=== PATIENT | female | born 1965 ===

== ENCOUNTER 2024-06-20 09:41 | Outpatient (REF) | payer BC, SELFPAY ==
--- OUTSIDE RECORDS SUMMARY | 2024-06-20 10:32 | XMS_ITS | Clinical Summary ---
[facility] Address [address] [place] [address] Care Team Providers Care Zinc Miner Name Role Phone Nelson Bah MD Primary Care Provider [phone] Allergies Active Allergy Reactions Criticality Noted Date Comments Amlodipine Swelling 01/01/2018 Bee Venom Protein (Honey Bee) Swelling High 11/01/2022 Lisinopril Swelling Medium 11/28/2017 Lip sweeling and dry cough Morphine Hives 05/19/2014 Sulfamethoxazole-Trimethopr im Hives 05/19/2014 Medications bisacodyL (DULCOLAX) 5 mg EC tablet Take 2 tablets by mouth right before your first dose of liquid prep. 4 Active polyethylene glycol (GoLYTELY) 236-22.74-6.74 -5.86 gram solution Take 240 mL by mouth once for 1 dose. May substitue for any PEG. Follow instructions given by office. 4 Active losartan (COZAAR) 100 mg tablet Take 1 tablet (100 mg total) by mouth 1 (one) time each day in the evening. 90 tablet 1 5 Active hydroCHLOROthia zide 12.5 mg tablet Take 1 tablet (12.5 mg total) by mouth at bedtime. 90 tablet 1 5 Active Active Problems Problem Noted Date Diagnosed Date Palpitations 10/13/2022 COVID-19 virus infection 08/22/2019 Overview (03/18/2024): covid infection August 2019, Apr 23 2021 Abnormal Pap smear of cervix 04/30/2019 Overview (03/18/2024): 08/02 LGSIL, HPV positive, had colposcopy 10/05 ASCUS, HPV positive 05/08 ASCUS HPV positive Heart murmur 01/01/2018 Overview (03/18/2024): Normal echo 04/03, no valvular issues Essential hypertension 11/28/2017 Breast cyst, left 04/16/2012 Overview (03/18/2024): Previously biopsied L breast nodule History of nephrolithiasis Encounters Date Type Department Care Team Description 05/13/2024 4:30 PM EST Office Visit Adult [address] [phone] Maryjane Sarah PA Tinnitus of left ear (Primary Dx); Decreased hearing, unspecified laterality 05/09/2024 11:00 AM EST Office Visit Obstetrics and Gynecology - [address] [phone] Bettye Pabon CNM BV (bacterial vaginosis) (Primary Dx) 04/29/2024 10:16 AM EST - 04/29/2024 11:59 PM EST Hospital Encounter XRAY [address] [phone] Chronic pain of both shoulders Discharge Disposition: Home or Self Care 04/29/2024 9:45 AM EST Office Visit Adult [address] [phone] Nelson Bah MD Essential hypertension (Primary Dx); Chronic pain of both shoulders 04/21/2024 Nurse Triage Adult [address] [phone] Nelson Bah MD Shoulder Pain from Last 3 Months Immunizations Name Administration Dates Next Due Influenza trivalent, 0.5mL, preservative free (Fluarix; FluLaval; Fluzone) ages 6mo and older (Afluria) 3 years and older 05/19/2014 Tdap Tetanus diptheria acell ular pertussis (Boostrix; Adacel) 7yo and older 05/19/2014 Surgical History Surgery Date Site/Laterality Comments OTHER SURGICAL HISTORY colposcopy 09/01 SCREENING MAMMOGRAM 02/01/2024 Bilateral COLONOSCOPY 01/10/2024 Medical History Medical History Date Comments Breast cyst, left 2012 Previously bio psied L breast nodule History of nephrolithiasis 10/24/2017 Abnormal Pap smear of cervix 04/30/201907/15 9 LGSIC Family History Medical History Relation Name Comments Colon polyps Aunt maternal, multi ple Alcohol abuse Father htn, stroke Kidney failure Maternal Grandmother Depression Mother hypothyroid, di abetes Hypertension Paternal Grandmother Relation Name Status Comments Aunt Alive Father Alive Maternal Grandfather Maternal Grandmother Alive Mother Alive Paternal Grandfather Paternal Grandmother Social History Tobacco Use Types Packs/Day Years Used Date Smoking Tobacco: Never Smokeless Tobacco: Never Tobacco Cessation:Counseling Given: Not Answered Alcohol Use Standard Drinks/Week Comments Yes 0 (1 standard drink = 0.6 oz pur e alcohol) Comments No Sex and Gender Information Value Date Recorded Sex Assigned at Not on file Legal Sex Female 5:43 PM EST Gender Identity Not on file Sexual Orientation Not on file Obstetrics History Para Term AB IAB SAB Ectopic Multiple Livin g Live Births 2 2 2 0 0 0 0 0 0 2 2 Date Outcome GA Total Labor Labor/2nd/3rd Weight Sex Type Anes PTL Tena A1 A5 Name Clin 986 Term M Vag-S pont Living Delivery Location:[facility] 989 Term M Vag-S pont Living Delivery Location:[facility] Last Filed Vital Signs Vital Sign Reading Time Taken Comments Blood Pressure 138/81 05/13/2024 4:35 PM EST Pulse 59 05/13/2024 4:35 PM EST Temperature 36 ??C (96.8 ??F) 05/13/2024 4:35 PM EST Respiratory Rate 14 05/13/2024 4:35 PM EST Oxygen Saturation 97% 04/29/2024 9:53 AM EST Inhaled Oxygen Concentration - - Weight 82.1 kg (181 lb) 05/13/2024 4:35 PM EST Height 177.8 cm (5' 10 ) 05/09/2024 11:06 AM EST Body Mass Index 25.97 05/09/2024 11:06 AM EST Plan of Treatment Upcoming Encounters Date Type Department Care Team (Late st Contact Info) Description 07/30/2024 3:00 PM EDT Office Visit Adult Medicine [facility] [address] [place] [address] Nelson Bah MD [address] [place] [address] Health Maintenance Due Date Last Done Comments COVID-19 Vaccine (#1) 1971 Hepatitis B Vaccines (1 of 3 - 19+ 3-dose series) 1985 Pneumococcal Vaccine: 50+ Years (1 of 2 - PCV) 1985 Pneumococcal Vaccine: Pediatrics (0 to 5 Years) and At-Risk Patients (6 to 64 Years) (1 of 2 - PCV) 1985 Zoster Vaccines (1 of 2) 1985 HIV Screening 03/25/2022 Hepatitis C Screening 03/25/2022 Social Influencers of Health Screening 03/25/2022 DTaP,Tdap,and Td Vaccines (2 - Td or Tdap) 05/19/2024 05/19/2014 Depression Screening 06/28/2024 06/29/2023 Influenza Vaccine (#1) 2024 05/19/2014 Postp oned from 12/16/2023 (Patient Refused) Hypertension/CHF/CAD Annual BMP Blood Test 12/27/2024 12/28/2023, 12/28/2023 Cervical Cancer Screening: Pap Smear 04/13/2025 04/13/2022 Breast Cancer Screening 01/31/2026 02/01/20 24, 11/09/2022, 11/03/2021, Additional history exists Cholesterol Screening (Lipid Panel) 06/28/2028 06/29/2023 Colorectal Cancer Screening: Colonoscopy 01/09/2034 01/10/2024 HIB Vaccines Aged Out No longer eligi ble based on patient's age to complete this topic HPV Vaccines Aged Out No longer eligi ble based on patient's age to complete this topic Hepatitis A Vaccines Aged Out No long er eligible based on patient's age to complete this topic IPV Vaccines Aged Out No longer eligi ble based on patient's age to complete this topic MMR Vaccines Aged Out No longer eligi ble based on patient's age to complete this topic Meningococcal ACWY Vaccine Aged Out N o longer eligible based on patient's age to complete this topic Meningococcal B Vacine Aged Out No lo nger eligible based on patient's age to complete this topic RSV Immunization Patients Under 20 months Aged Out No longer eligible based on patient's age to complete this topic Varicella Vaccines Aged Out No longer eligible based on patient's age to complete this topic Procedures Procedure Name Priority Date/Time Associated Diagnosis Comments TRICHOMONAS VAGINALIS ANTIGEN Routine 05/09/2024 11:29 AM EST BV (bacterial vaginosis) CHLAMYDIA TRACHOMATIS AND NEISSERIA GONORRHOEAE PCR Routine 05/09/2024 11:29 AM EST BV (bacterial vaginosis) POC WET MOUNT Routine 05/09/2024 11:28 AM EST BV (bacterial vaginosis) XR SHOULDER 2+ VIEWS LEFT Routine 04/29/2024 10:25 AM EST Chronic pain of both shoulders [facility] SCREENING DIGITAL Routine 02/01/2024 11:53 AM EDT Encounter for screening mammogram for malignant neoplasm of breast COLONOSCOPY Routine 01/10/2024 ANNUAL BMP BLOOD TEST Routine 12/28/2023 DEPRESSION SCREENING Routine 06/29/2023 LIPID PANEL Routine 06/29/2023 PAP SMEAR Routine 04/13/2022 from Last 3 Months or Most Recently Relevant to Health Maintenance Results * Trichomonas vaginalis antigen (05/09/2024 11:29 AM EST) Trichomonas vaginalis Negative Negative 05/09/2024 7:52 PM EST [facility] Swab Vaginal structure / Unknown Non-blood Collection / Unknown 05/09/2024 11:29 AM EST 05/09/2024 11:29 AM EST us Bettye Pabon CNM LAB MICROBIOLOGY - GENERAL ORDE RABMIKKI Final Result Performing Organization Address [facility]/ZIP Co de Phone Number [facility] [address] [place] [address], [place] [phone] * Chlamydia trachomatis and Neisseria gonorrhoeae molecular study (05/09/2024 11:29 AM EST) Pathologist [facility] Neisseria gonorrhoeae PCR Negative Negative LAB MOLECULAR DIAGNOSTICS METHOD 05/10/2024 8:33 AM EST [facility] Chlamydia trachomatis PCR Negative Negative LAB MOLECULAR DIAGNOSTICS METHOD 05/10/2024 8:33 AM EST [facility] Swab Cervix uteri structure / Unknown Non-blood Collection / Unknown 05/09/2024 11:29 AM EST 05/09/2024 11:29 AM EST us Bettye Pabon CNM LAB MICROBIOLOGY - GENERAL ORDE RABMIKKI Final Result Performing Organization Address [facility]/ZIP Co de Phone Number [facility] [address] [place] [address], [place] [phone] * (ABNORMAL) POC Wet [place] (05/09/2024 11:28 AM EST) Trichomonas, Wet Prep POC Absent Absent Yeast, Wet Prep POC Negative Not Applicable, Negative Clue Cells, Wet Prep POC Positive(A) Not Applicable, Negative PH FL Type POC 5.0 Vaginal Fluid Vaginal structure / Unknown 05/09/2024 11:28 AM EST us Bettye Pabon CNM POINT OF CARE TEST ENTER/EDIT O RDERABLES Final Result * XR Shoulder 2+ Views Left (04/29/2024 10:25 AM EST) Anatomical Region Laterality Modality Upper Extremities, Shoulder Left Radi ographic Imaging 04/29/2024 5:45 PM EST Narrative 04/29/2024 5:46 PM EST Left shoulder, 4 views. History pain. There are mild degenerative changes in the glenohumeral joint. There is no evidence of fractures, dislocations or destructive lesions. There is no abnormal soft tissue calcifications. CONCLUSIONS: Mild degenerative changes in the glenohumeral joint. -------- FINAL REPORT -------- Dictated By: Sarah Norton Dictated Date: 04/29/2024 17:45 ET Assigned Physician: Sarah Norton Reviewed and Electronically Signed By: Sarah Norton Signed Date: 04/29/2024 17:46 ET Workstation ID: [id number] Transcribed By: Self Edit Transcribed Date: 04/29/2024 17:45 ET Procedure Note Sarah Norton MD - 04/29/2024 Left shoulder, 4 views. History pain. There are mild degenerative changes in the glenohumeral joint. There is noevidence of fractures, dislocations or destructive lesions. There is noabnormal soft tissue calcifications. CONCLUSIONS: Mild degenerative changes in the glenohumeral joint. -------- FINAL REPORT -------- Dictated By: Sarah Norton Dictated Date: 04/29/2024 17:45 ET Assigned Physician: Sarah Norton Reviewed and Electronically Signed By: Sarah Norton Signed Date: 04/29/2024 17:46 ET Workstation ID: [id number] Transcribed By: Self Edit Transcribed Date: 04/29/2024 17:45 ET Nelson Bah MD IMG XR PROCEDURES Final Result * EMMETT SCREENING DIGITAL (02/01/2024 11:53 AM EDT) Anatomical Region Laterality Modality Mammography 02/01/2024 7:55 AM EDT Narrative 02/01/2024 11:53 AM EDT [facility] Diagnostic Imaging Department [address] [place] [id number] Patient: ??APRIL STERLING ?/Age/Sex: 1965 - Unit#: ??[id number] ? Location/Status: ??SPDIMAM/REG CLI ? Mnemonic/Ordering Site: ??DIGSC/SPMAM Ordering Physician: ??NELSON BAH MD [facility] Screening Digital - 02/01/24810 Report Status:Signed EXAM: ??SCREENING MAMMOGRAPHY, BILATERAL HISTORY: ??SCREENING. ??Family history of breast cancer. COMPARISON: ??11/09/2022, 11/03/2021, 09/16/2020 TECHNIQUE: Synthesized CC and MLO projections of each breast. ??Tomosynthesis of each breast in the CC and MLO projections. ADDITIONAL IMAGING: None Computer-aided detection was employed with the iCAD ??profound AI 3-D. TISSUE DENSITY: The breasts are heterogeneously dense, which may obscure small masses. (BI-RADS category C) FINDINGS: RIGHT BREAST: No suspicious mass. No suspicious calcification. No distortion. ?? No additional suspicious right breast findings LEFT BREAST: No suspicious mass. No suspicious calcification. No distortion. ?? No additional suspicious left breast findings IMPRESSION: No mammographic evidence of malignancy. No suspicious interval change. A negative mammogram in the presence of a clinically suspicious palpable abnormality does not preclude the possibility of malignancy or alter the indications for biopsy. ASSESSMENT: BI-RADS 1: NEGATIVE RECOMMENDATION(S): 1: Routine screening mammogram BILATERAL in 1 year. Dictating Physician: ??Kemi SHAVER BRET MD Electronically Signed by: ??Kemi SHAVER BRET MD Dic Date/Time: ??02/01/24 1139 Sign date/Time: ??02/01/24 1153 Procedure Note Tomi Shaver MD - 02/12/2024 [facility] Diagnostic Imaging Department [address] [place] [address] Patient: APRIL STERLING /Age/Sex: 1965 - 58 - F Unit#: [id number] [facility] Ordering Physician: NELSON BAH MD [facility] Screening Digital - 02/01/24 - 08 Report Status:Signed EXAM: SCREENING MAMMOGRAPHY, BILATERAL HISTORY: SCREENING. Family history of breast cancer. COMPARISON: 11/09/2022, 11/03/2021, 09/16/2020 TECHNIQUE: Synthesized CC and MLO projections of each breast.Tomosynthesis of each breast in the CC and MLO projections. ADDITIONAL IMAGING: None Computer-aided detection was employed with the iCAD profound AI 3-D. TISSUE DENSITY: The breasts are heterogeneously dense, which may obscuresmall masses. (BI-RADS category C) FINDINGS: RIGHT BREAST: No suspicious mass. No suspicious calcification. No distortion. Noadditional suspicious right breast findings LEFT BREAST: No suspicious mass. No suspicious calcification. No distortion. Noadditional suspicious left breast findings IMPRESSION: No mammographic evidence of malignancy. No suspicious interval change. A negative mammogram in the presence of a clinically suspicious palpable abnormality does not preclude the possibility of malignancy or alter the indications for biopsy. ASSESSMENT: BI-RADS 1: NEGATIVE RECOMMENDATION(S): 1: Routine screening mammogram BILATERAL in 1 year. Dictating Physician: Kemi SHAVER BRET MD Electronically Signed by: Kemi SHAVER BRET MD Dic Date/Time: 02/01/24 1139 Sign date/Time: 02/01/24 1153 Result [facility] Nelson Bah MD IM BI PROCEDURES Final Result * Colonoscopy (01/10/2024) Pathologist [facility] Colonoscopy No interpretation , abstracted Anatomical Region Laterality Modality Other Result [facility] HEALTH MAINTENANCE Final Result * Annual BMP Blood Test (12/28/2023) Health system Annual BMP Blood Test Abstracted Result [facility] Final Result * Depression Screening (06/29/2023) Health system Depression Screening Abstracted Result [facility] HEALTH MAINTENANCE Final Result * (ABNORMAL) Lipid panel (06/29/2023) [facility] LDL/HDL Ratio 3 0 - 4 Triglycerides 229(A) 0 - 150 mg/dL Cholesterol 200 0 - 200 mg/dL HDL 67 >=40 mg/dL LDL Cholesterol 88 0 - 100 mg/dL Blood Venous blood specimen / Unknown Result [facility] Provider LAB BLOOD ORDERABLES Clary l Result * Pap Smear (04/13/2022) Pathologist [facility] Pap smear No interpretation , abstracted Result [facility] Marlene REEVES HEALTH MAINTENANCE Final Result from Last 3 Months or Most Recently Relevant to Health Maintenance Insurance [facility] [id number] [facility] Care Teams Zinc Miner Relationship Specialty Start Date End Date Nelson Bah MD [address] [place] [address] PCP - General Internal Medicine 02/07/19
== END 2024-06-20 09:42 | disposition home or self-care (01) ==
LOC: HO.SH 09:41
PROVIDERS: Visit Provider Physician Assistant
DX: Z01.118 Encounter for examination of ears and hearing with other abnormal findings (principal); H90.3 Sensorineural hearing loss, bilateral; H93.13 Tinnitus, bilateral
CPT/HCPCS: 92557